=== PATIENT | female | born 1975 | race Caucasian/White ===

== ENCOUNTER 2023-10-13 12:59 | Emergency (ER) | payer BC, OTHER ==
[~2023-10-13] VITALS: Ht 167.6 cm; Wt 104.3 kg
[2023-10-13 13:17] VITALS: BP_SYST 151; PULSE 96; RESP 22; TEMP 98.3; O2SAT 98
[2023-10-13 14:16] LABS: BASOPHILS # (AUTO) 0.1 K/uL (0.0-0.2); BASOPHILS % (AUTO) 0.5 % (0.0-2.0); EOSINOPHILS # (AUTO) 0.1 K/uL (0.0-0.4); EOSINOPHILS % (AUTO) 0.5 % (0.0-4.0); HEMATOCRIT 44.2 % (36-48); HEMOGLOBIN 15.4 g/dL (12.0-16.0); LYMPHOCYTES # (AUTO) 1.6 K/uL (1.0-5.5); LYMPHOCYTES % (AUTO) 15.5 % (20.5-51.5); MEAN CORPUSCULAR HEMOGLOBIN 30 pg (27-31); MEAN CORPUSCULAR HGB CONC 35 % (32-36); MEAN CORPUSCULAR VOLUME 86 fL (79.0-98.0); MONOCYTES # (AUTO) 0.7 K/uL (0.0-1.0); MONOCYTES % (AUTO) 6.5 % (1.7-9.3); NEUTROPHILS # (AUTO) 7.9 K/uL (1.8-7.7); PLATELET COUNT (AUTO) 342 K/uL (130-430); RED BLOOD CELL COUNT(AUTO) 5.16 MIL/uL (4.2-6.2); RED CELL DISTRIBUTION WIDTH 14.2 % (9.0-15.0); WHITE BLOOD COUNT (AUTO) 10.2 K/uL (4.8-10.8)
[2023-10-13 14:24] LABS: ANION GAP 12 (5-15); CALCIUM 9.9 mg/dL (8.4-11.0); CARBON DIOXIDE 25 mmol/L (23-29); CHLORIDE 96 mmol/L (98-107); GFR AFRICAN AMERICAN 170 mL/min (>90); GLUCOSE 184 mg/dL (74-106); POTASSIUM 4.1 mmol/L (3.5-5.1); SODIUM SERUM 133 mmol/L (136-145); UREA NITROGEN, BLOOD 14 mg/dL (8-21)
[2023-10-13 14:26] LABS: GFR NON AFRICAN-AMERICAN 141 mL/min (>90)
[2023-10-13 14:26] LABS: CLARITY/URINE CLEAR (CLEAR); COLOR,URINE ORANGE (YELLOW)
[2023-10-13 14:29] LABS: ALANINE AMINOTRANSFERASE 55 U/L (12-78); ALBUMIN 3.9 g/dL (3.4-4.8); ASPARTATE AMINOTRANSFERASE 69 U/L (10-37); BILIRUBIN,DIRECT < 0.1 mg/dL (0.0-0.3); LIPASE 28 U/L (16-77); TOTAL BILIRUBIN 0.6 mg/dL (0.0-1.0); TOTAL PROTEIN, SERUM 8.8 g/dL (6.4-8.3)
[2023-10-13 14:30] LABS: UROBILINOGEN,URINE >=8 (0.2-1.0)
[2023-10-13 14:33] LABS: BACTERIA,URINE FEW /HPF (None Seen); MUCUS,URINE None Seen /LPF (None Seen); RBC,URINE 0-3 /HPF (0-3); WBC,URINE 0-3 /HPF (0-3)
[2023-10-13 17:39] VITALS: BP_SYST 128; PULSE 89; RESP 18; TEMP 98.3; O2SAT 96
== END 2023-10-13 17:20 | disposition home or self-care (01) ==
LOC: SED 12:59
DX: R10.32 Left lower quadrant pain (principal); E11.9 Type 2 diabetes mellitus without complications; I10 Essential (primary) hypertension; Z88.1 Allergy status to other antibiotic agents; Z79.899 Other long term (current) drug therapy
CPT/HCPCS: 36415; 76856-TC; 80048; 80076; 81000; 81001; 81015; 81025; 83690; 85025; 87086; 99284